=== PATIENT | female | born 1955 | race Caucasian/White ===

== ENCOUNTER → 2020-03-11 | Outpatient (CLI) | payer OTHER ==
[~2020-03-11] MED LIST: ADVAIR 250-501 EACH INH; AMLODIPINE BESY10 MG PO; CLARITIN10 M3 PO; GLIMEPIRIDE4 MG PO; JANUVIA100 MG PO; METFORMIN HCL500 M1 PO; MOMETASONE FURO17 GM NASAL; ONDANSETRON HCL4 M3 PO; PANTOPRAZOLE SO40 M1 PO; TRIAMTERENE-HC1 EAC3 PO; TRULICITY1.5 MG/0.5 SUBQ; VENTOLIN HFA INH8 GM INH; ZYRTEC10 M5 PO
== END ==
LOC: LAB 11:26
PROVIDERS: ATTEND Student in an Organized Health Care Education/Training Program
DX: Z01.812 Encounter for preprocedural laboratory examination (principal); Z11.59 Encounter for screening for other viral diseases

== ENCOUNTER 2020-03-14 06:11 | Day surgery (SDC) | payer BC, OTHER ==
[~2020-03-14] VITALS: Ht 160 cm; Wt 111.6 kg
[2020-03-14 07:58] VITALS: BP 146/56
--- NOTE | 2020-03-18 06:17 | O ---
[facility] [place] [place] [address] OPERATIVE REPORT Name: JESUS VALENTIN Room #: DEP [facility] M..#: [id number] Admission: 03/14/20 Attend Phys: Raymundo Rosales MD Discharge: 03/14/20 Date of : 55 Report #: [id number] THIS REPORT FOR: cc: Elda High MD,Elda Rosales,Raymundo Finch MD ~ CC: Elda Rosales DATE OF SERVICE: 03/14/2020 PREOPERATIVE DIAGNOSIS: Complex right medial canthal upper lid and lower lid inclusion cyst with nasolacrimal duct obstruction. POSTOPERATIVE DIAGNOSIS: Complex right medial canthal upper lid and lower lid inclusion cyst with nasolacrimal duct obstruction. PROCEDURE: Excision of complex inclusion cyst of right medial canthus, upper lid and lower lid with myocutaneous flap repair of defect, silicone lacrimal intubation and nasal video endoscopy. SURGEON: Raymunod Rosales MD EDITOR PUBLICATIONS: None. ANESTHESIA: General. COMPLICATIONS: None. INDICATIONS FOR SURGERY: This pleasant 64-year-old woman has a large right medial canthal lesion that appears to be an inclusion cyst directly overlying and compressing her superior canaliculus extending past the medial canthus over the anterior limb of the medial canthal tendon down over the inferior canaliculus. She presents today for excision of this lesion with repair of that defect along with silicone lacrimal intubation and nasal video endoscopy. Informed consent was obtained to include but not limited to the potential risk for loss of vision, bleeding, infection, failure to improve the problem, and the potential need for further surgery or treatment. DESCRIPTION OF PROCEDURE: The patient was taken to the operating room where general anesthesia was administered. The right medial canthal area was then generously infiltrated with Xylocaine with epinephrine mixed with Marcaine and Wydase. The same anesthetic mixture was then administered to the lateral wall of the nose. The right side of the nose was then packed with Afrin-soaked [address] [address] OPERATIVE REPORT Name: JESUS VALENTIN [facility] Room #: DEP [facility] M..#: [id number] Admission: 03/14/20 Attend Phys: Raymundo Rosales MD Discharge: 03/14/20 Date of : 55 Report #: [id number] cottonoids. The patient was subsequently prepped and draped in the usual sterile fashion. A Hero scissor was then used to make an incision over the lesion determining how much skin had to be removed with the lesion in order to keep the cyst intact. It turned out that much more of the skin was involved at the lesion than had been anticipated preoperatively. The dissection was then carried around 360 degrees around the lesion and then down on to its base using very delicate dissection and blunt techniques as much as possible. The lesion was very densely adherent to the medial canthal tendon. The lesion was, however, able to be excised en bloc. It was then passed off the field and noted to be 2 cm in its largest diameter. The superior and inferior puncta were then dilated with a punctum dilator. Kendall tubes were then passed through canaliculi and down the nasolacrimal duct where they were retrieved under the inferior turbinate with a Kendall hook and the video endoscope. No significant nasal pathology was seen on that side of the nose or in the region of concern. The silicone tubes were secured to themselves with 3 square throws and then to the lateral wall of the nose with one 5-0 Prolene suture. A myocutaneous flap was then developed superolaterally from the defect. The defect ended up being larger than what had been anticipated preoperatively. The relaxing incision made primarily laterally and then the flap rotated inferomedially to correct the defect. It was closed with interrupted multiple 6-0 plain gut sutures. The wound was then dressed with erythromycin ophthalmic ointment. The patient subsequently transported to the recovery area having tolerated the procedure well with no anesthetic or operative complications being noted. <ELECTRONICALLY SIGNED> By: Raymundo Rosales MD 03/18/20 [id number] [phone] Raymundo Rosales MD /nt
--- NOTE | 2020-03-19 17:06 | PATH ---
[facility] [address] [place] [address] PATHOLOGY RPT PROCEDURE Name: HANNA VALENTIN Room #: DEP [facility] M.R.#: [id number] Admission: 03/14/20 Date of : 55 Discharge: 03/14/20 Report #: [id number] Path Case #: [id number] [facility] Accession Number: [id number] . 01 Material submitted: . lid - LESION RIGHT UPPER LID. Modifiers: right, upper . 01 Clinical history: . lesion . 02 Diagnosis: Lesion, upper lid, excision: - Eccrine hidrocystoma. - Negative for malignancy. (IUV:stacia; 03/18/2020) QMS 03/18/2020 1645 Local . 02 Electronically signed: . Sarai Sol MD, Pathologist NPI- [id number] . 01 Gross description: . The specimen is received in formalin, labeled "David, Hanna, lesion upper lid" and consists of a fluctuant cystic segment of pink-ibarar tissue measuring 1.1 x 0.8 x 0.6 cm. Sectioning revealed the specimen contains clear fluid and is entirely submitted in A1. (SDY; 03/15/2020) SYU/SYU 03/18/2020 1107 Local . 02 Pathologist provided ICD-10: D21.0 . 02 CPT . 303089 Specimen Comment: A courtesy copy of this report has been sent to [phone], [phone] Specimen Comment: [phone] Specimen Comment: Report sent to / Specimen Comment: A duplicate report has been generated due to demographic updates. Performed at: [address] [id number] MD Germán Hill MD Phone: [phone] Performed at: [address] [id number] [address] [address] PATHOLOGY RPT PROCEDURE Name: HANNA VALENTIN ANNECE Room #: DEP [facility] M.R.#: [id number] Admission: 03/14/20 Date of : 55 Discharge: 03/14/20 Report #: [id number] Path Case #: [id number] MD Sarai Sol MD Phone: [phone]
== END 2020-03-14 10:00 | disposition home or self-care (01) ==
LOC: TBA 06:11 → OR 06:11 → TBA 06:12 → OR 09:55
PROVIDERS: ATTEND Ophthalmology
DX: H02.821 Cysts of right upper eyelid (principal); H04.551 Acquired stenosis of right nasolacrimal duct; I10 Essential (primary) hypertension; E11.9 Type 2 diabetes mellitus without complications; J45.909 Unspecified asthma, uncomplicated; K21.9 Gastro-esophageal reflux disease without esophagitis; Z98.890 Other specified postprocedural states; Z79.899 Other long term (current) drug therapy; Z90.49 Acquired absence of other specified parts of digestive tract; Z96.651 Presence of right artificial knee joint; Z98.41 Cataract extraction status, right eye; Z98.42 Cataract extraction status, left eye; Z90.710 Acquired absence of both cervix and uterus; Z91.040 Latex allergy status
CPT/HCPCS: 50010; 50101; 50386; 50398; 51636; 51777; 56528; 56531; 62110; 62900; 64037; 70005